=== PATIENT | female | born 2000 | race Two or more races ===

== ENCOUNTER 2019-11-15 23:02 | Emergency (ER) | payer OTHER ==
[~2019-11-15] VITALS: Ht 157.5 cm; Wt 61.4 kg
[2019-11-15 23:46] LABS: BASOPHILS % (AUTO) 0.4 % (0.0-2.0); EOSINOPHILS % (AUTO) 1.2 % (1.0-6.0); HEMATOCRIT 38.4 % (36-46); HEMOGLOBIN 12.7 g/dL (12.0-16.0); LYMPHOCYTES # (AUTO) 1.9 K/uL (1.0-4.8); LYMPHOCYTES % (AUTO) 22.7 % (22.0-44.0); MEAN CORPUSCULAR VOLUME 85 fL (80-100); MONOCYTES # (AUTO) 0.6 K/uL (0.1-1.0); MONOCYTES % (AUTO) 7.6 % (2.0-9.0); NEUTROPHILS # (AUTO) 5.8 K/uL (1.8-7.7); NEUTROPHILS % (AUTO) 68.1 % (40.0-70.0); PLATELET COUNT (AUTO) 317 K/uL (150-450); RED BLOOD CELL COUNT(AUTO) 4.52 MIL/uL (4.00-5.20); RED CELL DISTRIBUTION WIDTH 12.2 % (11.5-14.5)
[2019-11-15 23:55] LABS: ANION GAP 10 mmol/L (8-16); CARBON DIOXIDE 23 mmol/L (22-29); CHLORIDE 105 mmol/L (98-107); CREATININE 0.99 mg/dL (0.60-1.30); GLOMERULAR FILTR. RATE CALC > 60 mL/min (>60); GLUCOSE,RANDOM 103 mg/dL (70-110); POTASSIUM 3.4 mmol/L (3.5-5.1); SODIUM SERUM 138 mmol/L (136-145); UREA NITROGEN, BLOOD 12 mg/dL (7-18)
[2019-11-16 00:06] LABS: ACETAMINOPHEN < 2 mcg/mL (10-30); ALANINE AMINOTRANSFERASE 22 U/L (12-78); ALBUMIN 4.4 g/dL (3.4-5.0); ALKALINE PHOSPHATASE 86 U/L (46-116); ASPARTATE AMINOTRANSFERASE 20 U/L (15-37); BILIRUBIN,TOTAL 0.4 mg/dL (0.1-1.0); HCG,QUANTITATIVE < 1 mIU/mL (0-6); TOTAL PROTEIN, SERUM 8.3 g/dL (6.4-8.2)
[2019-11-16 00:07] LABS: SALICYLATE 0.3 mg/dL (2.8-20.0)
[2019-11-16] MEDS ORDERED: POTASSIUM CHLORIDE 10% 40 MEQ/30 ML LIQUID UDCUP PO ONE (00:15)
[2019-11-16 02:41] LABS: AMPHET/METH SCREEN,URINE NEGATIVE (NEGATIVE); BARBITURATE SCREEN, URINE NEGATIVE (NEGATIVE); BENZODIAZEPINES SCREEN,URINE NEGATIVE (NEGATIVE); CANNABINOID SCREEN,URINE NEGATIVE (NEGATIVE); COCAINE SCREEN,URINE NEGATIVE (NEGATIVE); METHADONE SCREEN, URINE NEGATIVE (NEGATIVE); OPIATE SCREEN,URINE NEGATIVE (NEGATIVE); PHENCYCLIDINE SCREEN,URINE NEGATIVE (NEGATIVE)
[2019-11-16 05:57] VITALS: BP 124/77
== END 2019-11-16 05:10 | disposition short-term general hospital (02) ==
LOC: EMS 23:05
DX: T39.312A Poisoning by propionic acid derivatives, intentional self-harm, initial encounter (principal); F32.9 Major depressive disorder, single episode, unspecified; E87.6 Hypokalemia; F41.9 Anxiety disorder, unspecified; Z91.018 Allergy to other foods; Y92.89 Other specified places as the place of occurrence of the external cause
CPT/HCPCS: 36415; 80053; 80307; 84702; 85025; 93005; 99285; G0481; G0480

== ENCOUNTER 2023-08-03 23:24 | Emergency (ER) | payer OTHER ==
[~2023-08-03] VITALS: Ht 167.6 cm; Wt 85.0 kg
[2023-08-03 23:47] VITALS: TEMP 99.9
[2023-08-04 00:04] LABS: APPEARANCE,URINE CLEAR (CLEAR); BILIRUBIN,URINE NEGATIVE (NEGATIVE); COLOR,URINE YELLOW (YELLOW); GLUCOSE, URINE (UA) NEGATIVE (NEGATIVE); KETONES,URINE TRACE mg/dL (NEGATIVE); LEUKOCYTE ESTERASE ,URINE TRACE (NEGATIVE); NITRATE,URINE NEGATIVE (NEGATIVE); OCCULT BLOOD,URINE NEGATIVE (NEGATIVE); PROTEIN,URINE 30-70 mg/dL (NEGATIVE); SPECIFIC GRAVITIY, URINE 1.038 (1.003-1.030)
[2023-08-04 00:12] LABS: BACTERIA,URINE None Seen /HPF (None Seen); RBC,URINE None Seen /HPF (0-2); SQUAMOUS EPITHELIAL CELL,UR Few /LPF (None Seen); WBC,URINE 0-2 /HPF (0-5)
[2023-08-04 01:05] VITALS: BP 124/64; PULSE 98; RESP 17
[2023-08-04] MEDS ORDERED: DOXY-354 PO (02:42)
== END 2023-08-04 03:16 | disposition home or self-care (01) ==
LOC: EMS 23:31
DX: L73.9 Follicular disorder, unspecified (principal); Z91.018 Allergy to other foods
CPT/HCPCS: 81001; 84703; 87491; 87591; 99282; 99283

== ENCOUNTER 2024-05-31 19:22 | Emergency (ER) | payer OTHER ==
[~2024-05-31] VITALS: Ht 160 cm; Wt 97.7 kg
[~2024-05-31 19:22] MED LIST: DOXY-354 PO
[2024-05-31 20:14] VITALS: BP 111/50; PULSE 86; RESP 16; TEMP 98.1; O2SAT 98
[2024-05-31] MEDS ORDERED: IBUP-1506 PO (20:44)
[2024-05-31] MEDS: PENICILLIN V POTASSIUM 500 MG TABLET PO ONE (20:44)
[2024-05-31] MEDS: IBUPROFEN 600 MG TABLET PO ONE (20:44)
[2024-05-31] MEDS ORDERED: PENI500T2 PO (20:44)
== END 2024-05-31 21:17 | disposition home or self-care (01) ==
LOC: EMS 19:22
DX: J02.0 Streptococcal pharyngitis (principal)
CPT/HCPCS: 87430; 99283